=== PATIENT | female | born 1985 | race Two or more races ===

== ENCOUNTER 2017-08-31 03:43 | Emergency (ER) | payer BC, MEDICAID ==
[~2017-08-31] VITALS: Ht 162.6 cm; Wt 56.7 kg
[2017-08-31 04:24] LABS: Basophils # (auto) 0.1 uL; Basophils % (auto) 1.3 % (0.0-2.0); Eosinophils # (auto) 0 uL; Eosinophils % (auto) 0.2 % (0.0-7.0); Hematocrit 40.6 % (36.0-46.0); Hemoglobin 13.6 g/dL (12.2-16.2); Lymphocytes # (auto) 2.2 uL; Lymphocytes % (auto) 34.6 % (10.0-50.0); Mean Corpuscular Hemoglobin 29.8 pg (28.0-32.0); Mean Corpuscular Hgb Conc. 33.6 g/dL (32.0-36.0); Mean Corpuscular Volume 88.5 fL (80.0-100.0); Monocytes # (auto) 0.3 uL; Monocytes % (auto) 5.3 % (0.0-12.0); Neutrophils # (auto) 3.7 uL; Neutrophils % (auto) 58.6 % (37.0-80.0); Nucleated Red Blood Cells % 0.1 %; Platelet Count (auto) 360 10^3/uL (140-450); Red Blood Cells 4.58 10^6/uL (4.0-5.20); Red Cell Distribution Width 17.7 % (11.8-14.3); White Blood Cell 6.4 10^3/uL (4.4-10.8)
[2017-08-31 04:26] LABS: Urine Pregnacy Test Negative (Negative)
[2017-08-31 04:31] LABS: Amphetamine Screen, Urine POSITIVE (NEGATIVE); Barbiturate Scree,Urine NEGATIVE (NEGATIVE); Benzodiazephine Screen, Urine NEGATIVE (NEGATIVE); Cannabinoid Screen, Urine NEGATIVE (NEGATIVE); Cocaine Screen, Urine POSITIVE (NEGATIVE); Opiate Scree,Urine NEGATIVE (NEGATIVE); Phencyclidine Screen, Urine NEGATIVE (NEGATIVE)
[2017-08-31 04:32] LABS: Urine Amorphous Crystal FEW /hpf (None Seen); Urine Bacteria MANY /hpf (None Seen); Urine Blood TRACE /uL (Negative); Urine Hyaline Cast FEW /lpf (0 - 2); Urine Mucus FEW (None Seen); Urine Specific Gravity 1.022 (1.001-1.035); Urine WBC 40 /hpf (0 - 5)
[2017-08-31 04:36] LABS: Albumin 3.8 g/dL (3.4-5.0); BUN/Creatinine Ratio 12.5; Calcium 8.2 mg/dL (8.5-10.1); Potassium 3.4 mmol/L (3.5-5.1)
[2017-08-31 04:40] LABS: Bilirubin, Total 0.3 mg/dL (0.2-1.0); Total Protein 8.6 g/dL (6.4-8.2)
[2017-08-31 06:00] VITALS: BP 147/88
[2017-08-31] MEDS ORDERED: cefTRIAXone 1GM/10ml IVPUSH 10 ML IV ONE (06:00)
[2017-08-31] MEDS ORDERED: SODIUM CHLORIDE 0.9% 3,000 ML IV ONE (06:00)
== END 2017-08-31 06:13 | disposition left against medical advice (07) ==
LOC: ER 03:45
DX: F10.120 Alcohol abuse with intoxication, uncomplicated (principal); N39.0 Urinary tract infection, site not specified; F14.10 Cocaine abuse, uncomplicated; Z53.29 Procedure and treatment not carried out because of patient's decision for other reasons
CPT/HCPCS: 36415; 80053; 80307; 80320; 81001; 81025; 85025; 93005

== ENCOUNTER 2017-09-30 22:21 | Observation (INO) | payer BC, MEDICAID ==
[~2017-09-30] VITALS: Ht 162.6 cm; Wt 59.0 kg
[2017-09-30 23:01] LABS: Basophils # (auto) 0.1 uL; Eosinophils # (auto) 0.1 uL; Lymphocytes # (auto) 1.8 uL; Monocytes # (auto) 0.4 uL; Monocytes % (auto) 6.6 % (0.0-12.0); Neutrophils # (auto) 3.9 uL; Nucleated Red Blood Cells % 0.1 %; Red Cell Distribution Width 18.9 % (11.8-14.3)
[2017-09-30 23:03] LABS: Basophils % (auto) 1.3 % (0.0-2.0); Eosinophils % (auto) 0.8 % (0.0-7.0); Hematocrit 35.6 % (36.0-46.0); Hemoglobin 11.9 g/dL (12.2-16.2); Mean Corpuscular Hgb Conc. 33.4 g/dL (32.0-36.0); Mean Corpuscular Volume 89.7 fL (80.0-100.0); Neutrophils % (auto) 62.3 % (37.0-80.0); Red Blood Cells 3.97 10^6/uL (4.0-5.20); White Blood Cell 6.3 10^3/uL (4.4-10.8)
[2017-09-30 23:12] LABS: Urine Bacteria NONE SEEN /hpf (None Seen); Urine Blood Negative /uL (Negative); Urine Specific Gravity 1.024 (1.001-1.035); Urine WBC 2 /hpf (0 - 5)
[2017-09-30 23:17] LABS: Albumin 4.4 g/dL (3.4-5.0); BUN/Creatinine Ratio 15.1; Calcium 8.4 mg/dL (8.5-10.1); Potassium 3.2 mmol/L (3.5-5.1)
[2017-09-30 23:21] LABS: Bilirubin, Total 0.4 mg/dL (0.2-1.0); Total Protein 8.7 g/dL (6.4-8.2)
[2017-09-30 23:41] LABS: Platelet Count (auto) 474 10^3/uL (140-450)
[2017-10-01 01:29] LABS: Amphetamine Screen, Urine NEGATIVE (NEGATIVE); Barbiturate Scree,Urine NEGATIVE (NEGATIVE); Benzodiazephine Screen, Urine NEGATIVE (NEGATIVE); Cannabinoid Screen, Urine NEGATIVE (NEGATIVE); Cocaine Screen, Urine NEGATIVE (NEGATIVE); Opiate Scree,Urine NEGATIVE (NEGATIVE); Phencyclidine Screen, Urine NEGATIVE (NEGATIVE)
[2017-10-01 02:51] VITALS: BP 124/83
== END 2017-10-01 04:12 | disposition home or self-care (01) | DRG 690 ==
LOC: ER 22:21 → OVERFLOW 22:22 → ER 10-01 04:12
PROVIDERS: ADMIT Emergency Medicine; ATTEND Emergency Medicine
DX: N39.0 Urinary tract infection, site not specified (principal); Z87.442 Personal history of urinary calculi
CPT/HCPCS: 36415; 74176; 80053; 80307; 80320; 81001; 81025; 85025; 99285; G0378

== ENCOUNTER 2017-10-08 15:53 | Emergency (ER) | payer BC, MEDICAID ==
[~2017-10-08] VITALS: Ht 162.6 cm; Wt 59.0 kg
[2017-10-08] MEDS ORDERED: SODIUM CHLORIDE 0.9% 1,000 ML IV ONE ×2 (16:39)
[2017-10-08] MEDS ORDERED: chlordiazePOXIDE HCL 5 MG CAP PO ONE (16:45)
[2017-10-08] MEDS ORDERED: THIAMINE 100mg/ml INJ (200mg/2ml VIAL) IV ONE (16:45)
[2017-10-08 17:12] LABS: Alanine Aminotransferase 32 U/L (13-56); Albumin 4.2 g/dL (3.4-5.0); Anion Gap 12 (5-15); Aspartate Aminotransferase 36 U/L (15-37); BUN/Creatinine Ratio 18.8; Blood Urea Nitrogen 13 mg/dL (7-18); Calcium 8.9 mg/dL (8.5-10.1); Carbon Dioxide 25 mmol/L (21-32); Chloride 103 mmol/L (98-107); GFR African American 128 mL/min; GFR Non-African American 105 mL/min; Glucose 85 mg/dL (74-106); Potassium 3.8 mmol/L (3.5-5.1); Sodium 140 mmol/L (136-145)
[2017-10-08 17:15] LABS: Basophils # (auto) 0.1 uL; Eosinophils # (auto) 0 uL; Eosinophils % (auto) 0.1 % (0.0-7.0); Hematocrit 40.9 % (36.0-46.0); Hemoglobin 13.8 g/dL (12.2-16.2); Lymphocytes # (auto) 1.4 uL; Lymphocytes % (auto) 19.9 % (10.0-50.0); Mean Corpuscular Hgb Conc. 33.7 g/dL (32.0-36.0); Mean Corpuscular Volume 89.1 fL (80.0-100.0); Monocytes # (auto) 0.4 uL; Monocytes % (auto) 5.2 % (0.0-12.0); Neutrophils # (auto) 5.2 uL; Neutrophils % (auto) 73.8 % (37.0-80.0); Platelet Count (auto) 346 10^3/uL (140-450); Red Blood Cells 4.59 10^6/uL (4.0-5.20); Red Cell Distribution Width 19.7 % (11.8-14.3)
[2017-10-08 17:16] LABS: Alkaline Phosphatase 80 U/L (45-117); Bilirubin, Total 0.5 mg/dL (0.2-1.0); Total Protein 9.6 g/dL (6.4-8.2)
[2017-10-08 17:56] LABS: Urine Bacteria NONE SEEN /hpf (None Seen); Urine Blood Negative /uL (Negative); Urine Specific Gravity 1.023 (1.001-1.035); Urine WBC 2 /hpf (0 - 5)
[2017-10-08 18:16] LABS: Amphetamine Screen, Urine NEGATIVE (NEGATIVE); Barbiturate Scree,Urine NEGATIVE (NEGATIVE); Benzodiazephine Screen, Urine NEGATIVE (NEGATIVE); Cannabinoid Screen, Urine POSITIVE (NEGATIVE); Cocaine Screen, Urine POSITIVE (NEGATIVE); Opiate Scree,Urine NEGATIVE (NEGATIVE); Phencyclidine Screen, Urine NEGATIVE (NEGATIVE)
[2017-10-08 18:53] VITALS: BP 154/55
== END 2017-10-08 18:56 | disposition home or self-care (01) ==
LOC: ER 15:53
DX: E86.0 Dehydration (principal); F10.120 Alcohol abuse with intoxication, uncomplicated; I10 Essential (primary) hypertension; F15.10 Other stimulant abuse, uncomplicated; F14.10 Cocaine abuse, uncomplicated
CPT/HCPCS: 36415; 80053; 80307; 81001; 83880; 84484; 85025; 96361; 96374; 99285; J3411; 93005

== ENCOUNTER 2018-11-23 22:47 | Emergency (ER) | payer BC, MEDICAID ==
[~2018-11-23] VITALS: Ht 162.6 cm; Wt 61.2 kg
[2018-11-23 23:19] LABS: Basophils # (auto) 0.1 uL; Basophils % (auto) 0.5 % (0.0-2.0); Eosinophils # (auto) 0 uL; Hematocrit 39.7 % (36.0-46.0); Hemoglobin 13.1 g/dL (12.2-16.2); Lymphocytes # (auto) 0.8 uL; Lymphocytes % (auto) 3.6 % (10.0-50.0); Mean Corpuscular Hemoglobin 31.8 pg (28.0-32.0); Mean Corpuscular Hgb Conc. 33.1 g/dL (32.0-36.0); Mean Corpuscular Volume 96.2 fL (80.0-100.0); Monocytes # (auto) 0.4 uL; Monocytes % (auto) 1.9 % (0.0-12.0); Neutrophils # (auto) 20.4 uL; Platelet Count (auto) 312 10^3/uL (140-450); Red Blood Cells 4.13 10^6/uL (4.0-5.20); Red Cell Distribution Width 15.4 % (11.8-14.3); White Blood Cell 21.7 10^3/uL (4.4-10.8)
[2018-11-23 23:39] LABS: Alanine Aminotransferase 15 U/L (13-56); Albumin 3.9 g/dL (3.4-5.0); Amylase 25 U/L (25-115); Anion Gap 14 (5-15); Aspartate Aminotransferase 13 U/L (15-37); BUN/Creatinine Ratio 11.4; Blood Urea Nitrogen 8 mg/dL (7-18); Calcium 8.8 mg/dL (8.5-10.1); Carbon Dioxide 18 mmol/L (21-32); Chloride 103 mmol/L (98-107); GFR African American 125 mL/min; GFR Non-African American 103 mL/min; Glucose 87 mg/dL (74-106); Lipase 65 U/L (73-393); Potassium 3.6 mmol/L (3.5-5.1); Sodium 135 mmol/L (136-145)
[2018-11-23 23:44] LABS: Alkaline Phosphatase 70 U/L (45-117); Bilirubin, Total 0.6 mg/dL (0.2-1.0); Total Protein 8.7 g/dL (6.4-8.2)
[2018-11-24] MEDS ORDERED: ONDANSETRON HCL 4 MG/2 ML VIAL IV ONE (02:45)
[2018-11-24] MEDS ORDERED: SODIUM CHLORIDE 0.9% 2,000 ML IV ONE (02:45)
[2018-11-24] MEDS ORDERED: NALBUPHINE HCL 10 MG/1ml INJECTION IV ONE (02:45)
[2018-11-24 02:46] LABS: Urine Bacteria FEW /hpf (None Seen); Urine Blood TRACE /uL (Negative); Urine Mucus FEW (None Seen); Urine Specific Gravity 1.017 (1.001-1.035); Urine WBC 24 /hpf (0 - 5)
[2018-11-24] MEDS ORDERED: CEFTRIAXONE SODIUM 2 GM in D5W 5% 50 ML IV ONE (06:30)
[2018-11-24 06:32] VITALS: BP 109/64
[2018-11-24] MEDS ORDERED: cefTRIAXone 1GM/50ML D5W 100 ML IV ONE (06:45)
== END 2018-11-24 07:07 | disposition home or self-care (01) ==
LOC: ER 22:49
DX: N39.0 Urinary tract infection, site not specified (principal); I10 Essential (primary) hypertension; F17.210 Nicotine dependence, cigarettes, uncomplicated; F12.10 Cannabis abuse, uncomplicated; F14.10 Cocaine abuse, uncomplicated
CPT/HCPCS: 36415; 74176; 80053; 81001; 82150; 83690; 84484; 84702; 85025; 93005; 96365; 96375; 99284; J0696; J2300; J2405; J7060

== ENCOUNTER 2019-08-14 20:50 | Emergency (ER) | payer BC, MEDICAID ==
[~2019-08-14] VITALS: Ht 162.6 cm; Wt 59.0 kg
[2019-08-14 21:12] VITALS: BP 156/105
== END 2019-08-15 00:52 | disposition left against medical advice (07) ==
LOC: ER 20:50
DX: R10.9 Unspecified abdominal pain (principal); M54.9 Dorsalgia, unspecified; Z53.21 Procedure and treatment not carried out due to patient leaving prior to being seen by health care provider

== ENCOUNTER 2021-04-28 16:38 | Inpatient (IN) | payer BC, MEDICAID ==
[~2021-04-28] VITALS: Ht 162.6 cm; Wt 59.0 kg
[2021-04-28 17:21] LABS: Basophils # (auto) 0.1 10 ^3/uL (0-0.2); Eosinophils # (auto) 0 10 ^3/uL (0-0.8); Lymphocytes # (auto) 1.2 10 ^3/uL (0.4-5.4); Monocytes # (auto) 0.4 10 ^3/uL (0-1.3); Neutrophils # (auto) 3.7 10 ^3/uL (1.6-8.6); Nucleated Red Blood Cells % 0.2 %; White Blood Cell 5.4 10^3/uL (4.4-10.8)
[2021-04-28 17:23] LABS: Basophils % (auto) 1.8 % (0.0-2.0); Eosinophils % (auto) 0.7 % (0.0-7.0); Hematocrit 29.2 % (36.0-46.0); Hemoglobin 9.8 g/dL (12.2-16.2); Lymphocytes % (auto) 22.4 % (10.0-50.0); Mean Corpuscular Hemoglobin 26.6 pg (28.0-32.0); Mean Corpuscular Hgb Conc. 33.5 g/dL (32.0-36.0); Mean Corpuscular Volume 79.4 fL (80.0-100.0); Monocytes % (auto) 7.1 % (0.0-12.0); Red Blood Cells 3.68 10^6/uL (4.0-5.20); Red Cell Distribution Width 16.2 % (11.8-14.3)
[2021-04-28 17:33] LABS: INR 0.92 (0.9-1.15); Partial Thromboplastin Time 26.6 sec (23.6-33.0)
[2021-04-28 17:43] LABS: Albumin 2.4 g/dL (3.4-5.0); Potassium 3.3 mmol/L (3.5-5.1)
[2021-04-28 17:48] LABS: Alcohol, Urine < 3.0 mg/dL (0-10); Amphetamine Screen, Urine POSITIVE (NEGATIVE); Barbiturate Scree,Urine NEGATIVE (NEGATIVE); Benzodiazephine Screen, Urine NEGATIVE (NEGATIVE); Cannabinoid Screen, Urine NEGATIVE (NEGATIVE); Cocaine Screen, Urine NEGATIVE (NEGATIVE); Opiate Scree,Urine NEGATIVE (NEGATIVE); Phencyclidine Screen, Urine NEGATIVE (NEGATIVE)
[2021-04-28 17:59] LABS: Protein, Urine 32.2 mg/dL (0.0-11.9)
[2021-04-28] MEDS ORDERED: LACTATED RINGER'S 1,000 ML IV SCH (18:15)
[2021-04-28 18:20] LABS: Bilirubin, Total 0.5 mg/dL (0.2-1.0); Uric Acid 6.4 mg/dL (2.6-6.0)
[2021-04-28 18:24] LABS: Urine Bacteria FEW /hpf (None Seen); Urine Blood Negative /uL (Negative); Urine Specific Gravity 1.012 (1.001-1.035); Urine WBC 53 /hpf (0 - 5)
[2021-04-28 18:26] LABS: Total Protein 7.7 g/dL (6.4-8.2)
[2021-04-28 18:28] LABS: BUN/Creatinine Ratio 11.7
[2021-04-28] MEDS ORDERED: MAGNESIUM SULFATE 40MG/ML 1,000 ML IV SCH (19:30)
[2021-04-28] MEDS ORDERED: MAGNESIUM SULFATE 100 ML IV ONE (19:30)
[2021-04-28] MEDS ORDERED: LORazepam 2MG/ML-1ML VIAL IV ONE (19:30)
[2021-04-28] MEDS ORDERED: hydrALAZINE HCL 20 MG/ML VL IV PRN (19:45)
[2021-04-28] MEDS ORDERED: ALUM & MAG HYDROX-SIMETH LIQ(MAALOX) 30 ML PO ONE (19:45)
[2021-04-30 07:07] LABS: Rubella Antibodies, IgG 7.63 index (Immune >0.99)
== END 2021-04-28 20:38 | disposition home or self-care (01) | DRG 833 ==
LOC: LDRP 16:38 → OBSVTOIN 19:46
PROVIDERS: ADMIT Obstetrics & Gynecology Obstetrics; ATTEND Obstetrics & Gynecology Obstetrics
DX: O14.93 Unspecified pre-eclampsia, third trimester (principal); Z3A.34 34 weeks gestation of pregnancy; Z20.822 Contact with and (suspected) exposure to COVID-19
CPT/HCPCS: 36415; 59025; 76805; 80053; 80307; 81001; 81002; 82570; 83735; 84156; 84550; 85025; 85610; 85730; 86592; 86703; 86762; 86850; 86900; 86901; 87340; 87426; 94760; 96360; 96361; 96365; G0378

== ENCOUNTER 2021-08-12 22:02 | Emergency (ER) | payer BC, MEDICAID ==
[~2021-08-12] VITALS: Ht 160 cm; Wt 59.0 kg
[2021-08-13 01:37] LABS: Hemoglobin 11.3 g/dL (12.2-16.2)
[2021-08-13 01:40] LABS: Basophils # (auto) 0.1 10 ^3/uL (0-0.2); Basophils % (auto) 1.1 % (0.0-2.0); Eosinophils # (auto) 0 10 ^3/uL (0-0.8); Eosinophils % (auto) 0.5 % (0.0-7.0); Hematocrit 34.9 % (36.0-46.0); Lymphocytes # (auto) 2.2 10 ^3/uL (0.4-5.4); Lymphocytes % (auto) 32.7 % (10.0-50.0); Mean Corpuscular Hemoglobin 27.3 pg (28.0-32.0); Mean Corpuscular Hgb Conc. 32.4 g/dL (32.0-36.0); Mean Corpuscular Volume 84.4 fL (80.0-100.0); Monocytes # (auto) 0.7 10 ^3/uL (0-1.3); Monocytes % (auto) 10.1 % (0.0-12.0); Neutrophils # (auto) 3.7 10 ^3/uL (1.6-8.6); Neutrophils % (auto) 55.6 % (37.0-80.0); Nucleated Red Blood Cells % 0.1 %; Red Blood Cells 4.14 10^6/uL (4.0-5.20); White Blood Cell 6.7 10^3/uL (4.4-10.8)
[2021-08-13 01:49] LABS: Red Cell Distribution Width 20.6 % (11.8-14.3)
[2021-08-13 01:56] LABS: Alanine Aminotransferase 42 U/L (13-56); Albumin 4.4 g/dL (3.4-5.0); Anion Gap 10 (5-15); Aspartate Aminotransferase 59 U/L (15-37); BUN/Creatinine Ratio 15.4; Blood Alcohol < 3.0 mg/dL (0-5); Blood Urea Nitrogen 12 mg/dL (7-18); Calcium 10.4 mg/dL (8.5-10.1); Carbon Dioxide 27 mmol/L (21-32); Chloride 105 mmol/L (98-107); GFR African American 108 mL/min; GFR Non-African American 89 mL/min; Glucose 109 mg/dL (74-106); Potassium 3.5 mmol/L (3.5-5.1); Salicylate < 1.7 mg/dL (2.8-20.0); Sodium 142 mmol/L (136-145)
[2021-08-13 01:59] LABS: Alkaline Phosphatase 71 U/L (45-117); Total Protein 8.9 g/dL (6.4-8.2)
[2021-08-13 02:01] LABS: Acetaminophen < 2.0 ug/mL (10-30)
[2021-08-13 05:40] LABS: Amphetamine Screen, Urine POSITIVE (NEGATIVE); Barbiturate Scree,Urine NEGATIVE (NEGATIVE); Benzodiazephine Screen, Urine NEGATIVE (NEGATIVE); Cocaine Screen, Urine NEGATIVE (NEGATIVE); Phencyclidine Screen, Urine NEGATIVE (NEGATIVE)
[2021-08-13 05:47] LABS: Cannabinoid Screen, Urine NEGATIVE (NEGATIVE); Opiate Scree,Urine NEGATIVE (NEGATIVE)
[2021-08-13 09:57] VITALS: BP 140/95
== END 2021-08-13 12:30 | disposition left against medical advice (07) ==
LOC: ER 22:02
DX: F41.0 Panic disorder [episodic paroxysmal anxiety] (principal); I10 Essential (primary) hypertension; F17.210 Nicotine dependence, cigarettes, uncomplicated; F15.10 Other stimulant abuse, uncomplicated; F14.10 Cocaine abuse, uncomplicated; Z53.29 Procedure and treatment not carried out because of patient's decision for other reasons
CPT/HCPCS: 36415; 80053; 80307; 80320; 80329; 84702; 85025

== ENCOUNTER 2022-08-19 10:50 | Emergency (ER) | payer BC, MEDICAID ==
[~2022-08-19] VITALS: Ht 162.6 cm; Wt 77.0 kg
[2022-08-19] MEDS ORDERED: PENICILLIN G BENZ 1200000 UNITS/2 ML SYRG IM ONE (11:30)
[2022-08-19 14:04] VITALS: BP 109/69
== END 2022-08-19 14:06 | disposition home or self-care (01) ==
LOC: ER 10:50
DX: O98.113 Syphilis complicating pregnancy, third trimester (principal); F17.210 Nicotine dependence, cigarettes, uncomplicated; F10.90 Alcohol use, unspecified, uncomplicated; F15.90 Other stimulant use, unspecified, uncomplicated; Z3A.28 28 weeks gestation of pregnancy; Z98.890 Other specified postprocedural states

== ENCOUNTER 2022-09-30 08:35 | Observation (INO) | payer BC, MEDICAID ==
[~2022-09-30] VITALS: Ht 162.6 cm; Wt 78.9 kg
[2022-09-30 09:31] LABS: Basophils # (auto) 0.1 10 ^3/uL (0-0.2); Basophils % (auto) 0.9 % (0.0-2.0); Eosinophils # (auto) 0.1 10 ^3/uL (0-0.8); Eosinophils % (auto) 1.7 % (0.0-7.0); Hematocrit 31.9 % (36.0-46.0); Hemoglobin 10.7 g/dL (12.2-16.2); Lymphocytes # (auto) 1.5 10 ^3/uL (0.4-5.4); Lymphocytes % (auto) 24.1 % (10.0-50.0); Mean Corpuscular Hemoglobin 30.1 pg (28.0-32.0); Mean Corpuscular Hgb Conc. 33.5 g/dL (32.0-36.0); Mean Corpuscular Volume 89.9 fL (80.0-100.0); Monocytes # (auto) 0.4 10 ^3/uL (0-1.3); Neutrophils # (auto) 4.1 10 ^3/uL (1.6-8.6); Neutrophils % (auto) 66.3 % (37.0-80.0); Nucleated Red Blood Cells % 0.2 %; Red Blood Cells 3.55 10^6/uL (4.0-5.20); Red Cell Distribution Width 17.8 % (11.8-14.3); White Blood Cell 6.2 10^3/uL (4.4-10.8)
[2022-09-30 09:38] LABS: Urine Bacteria FEW /hpf (None Seen); Urine Blood Negative /uL (Negative); Urine Specific Gravity 1.006 (1.001-1.035); Urine WBC 31 /hpf (0 - 5)
[2022-09-30 09:46] LABS: Albumin 2.6 g/dL (3.4-5.0); Calcium 8.2 mg/dL (8.5-10.1)
[2022-09-30 09:50] LABS: BUN/Creatinine Ratio 9.3 (10.0-20.0); Bilirubin, Total 0.2 mg/dL (0.2-1.0); Total Protein 6.5 g/dL (6.4-8.2); Uric Acid 5.9 mg/dL (2.6-6.0)
[2022-09-30 09:53] LABS: Protein, Urine 12.3 mg/dL (0.0-11.9)
[2022-09-30 09:55] LABS: INR 0.94 (0.9-1.15); Partial Thromboplastin Time 30.3 SEC (24.5-34.5); Potassium 2.8 mmol/L (3.5-5.1)
[2022-09-30] MEDS ORDERED: POTASSIUM CHL 20 Meq TABLET PO ONE (10:15)
== END 2022-09-30 11:00 | disposition home or self-care (01) ==
LOC: LDRP 08:35 → UNDOADMOB 08:35 → LDRP 08:46 → UNDODISOB 11:00
PROVIDERS: ADMIT Obstetrics & Gynecology; ATTEND Obstetrics & Gynecology
DX: O13.3 Gestational [pregnancy-induced] hypertension without significant proteinuria, third trimester (principal); O60.03 Preterm labor without delivery, third trimester; Z3A.34 34 weeks gestation of pregnancy
CPT/HCPCS: 36415; 59025; 80053; 81001; 81002; 82570; 84112; 84156; 84550; 85025; 85610; 85730; 86592; 94760; G0378

== ENCOUNTER 2022-10-02 16:30 | Observation (INO) | payer BC, MEDICAID ==
[~2022-10-02] VITALS: Ht 162.6 cm; Wt 78.9 kg
[2022-10-02] MEDS ORDERED: POTASSIUM CHL 20 Meq TABLET PO ONE (18:00)
[2022-10-02 18:29] LABS: 24 Hr. Total Protein, Urine 199.5 mg/24 Hr (<149.1)
[2022-10-02 20:22] LABS: Creatinine Clearance, Urine 48.4 mL/min (75-115)
== END 2022-10-02 19:18 | disposition home or self-care (01) ==
LOC: LDRP 16:30
PROVIDERS: ADMIT Obstetrics & Gynecology; ATTEND Obstetrics & Gynecology
DX: O14.93 Unspecified pre-eclampsia, third trimester (principal); O13.3 Gestational [pregnancy-induced] hypertension without significant proteinuria, third trimester; Z3A.34 34 weeks gestation of pregnancy
CPT/HCPCS: 59025; 81002; 82575; 84156; 94760; G0378

== ENCOUNTER 2022-10-09 20:08 | Observation (INO) | payer BC, MEDICAID ==
[~2022-10-09] VITALS: Ht 162.6 cm; Wt 78.9 kg
== END 2022-10-09 22:20 | disposition home or self-care (01) ==
LOC: LDRP 20:08
PROVIDERS: ADMIT Obstetrics & Gynecology; ATTEND Obstetrics & Gynecology
DX: O13.3 Gestational [pregnancy-induced] hypertension without significant proteinuria, third trimester (principal); O24.419 Gestational diabetes mellitus in pregnancy, unspecified control; Z3A.36 36 weeks gestation of pregnancy
CPT/HCPCS: 59025; 76818; 81002; G0378

== ENCOUNTER 2022-10-13 09:57 | Inpatient (IN) | payer BC, MEDICAID ==
[~2022-10-13] VITALS: Ht 162.6 cm; Wt 54.4 kg
[2022-10-13] MEDS ORDERED: hydrALAZINE HCL 20 MG/ML VL IV ONE (17:30)
[2022-10-13 18:20] LABS: Basophils # (auto) 0 10 ^3/uL (0-0.2); Basophils % (auto) 0.5 % (0.0-2.0); Eosinophils # (auto) 0.1 10 ^3/uL (0-0.8); Eosinophils % (auto) 1.1 % (0.0-7.0); Hematocrit 35.2 % (36.0-46.0); Hemoglobin 11.7 g/dL (12.2-16.2); Lymphocytes % (auto) 24.6 % (10.0-50.0); Mean Corpuscular Hemoglobin 29.8 pg (28.0-32.0); Mean Corpuscular Hgb Conc. 33.3 g/dL (32.0-36.0); Mean Corpuscular Volume 89.5 fL (80.0-100.0); Monocytes # (auto) 0.4 10 ^3/uL (0-1.3); Monocytes % (auto) 5.1 % (0.0-12.0); Neutrophils # (auto) 5.5 10 ^3/uL (1.6-8.6); Neutrophils % (auto) 68.7 % (37.0-80.0); Nucleated Red Blood Cells % 0.1 %; Red Blood Cells 3.93 10^6/uL (4.0-5.20); Red Cell Distribution Width 17.1 % (11.8-14.3)
[2022-10-13 18:37] LABS: INR 0.94 (0.9-1.15); Partial Thromboplastin Time 29.6 SEC (24.5-34.5); Prothrombin Time 9.9 sec (9.3-11.8)
[2022-10-13 18:38] LABS: Albumin 2.8 g/dL (3.4-5.0); Calcium 8.4 mg/dL (8.5-10.1)
[2022-10-13 18:42] LABS: BUN/Creatinine Ratio 11.6 (10.0-20.0); Bilirubin, Total 0.2 mg/dL (0.2-1.0); Total Protein 7.3 g/dL (6.4-8.2); Uric Acid 5.9 mg/dL (2.6-6.0)
[2022-10-13 18:45] LABS: Alcohol, Urine < 3.0 mg/dL (0-10); Amphetamine Screen, Urine NEGATIVE (NEGATIVE); Barbiturate Scree,Urine NEGATIVE (NEGATIVE); Benzodiazephine Screen, Urine NEGATIVE (NEGATIVE); Cannabinoid Screen, Urine NEGATIVE (NEGATIVE); Cocaine Screen, Urine NEGATIVE (NEGATIVE); Opiate Scree,Urine NEGATIVE (NEGATIVE); Phencyclidine Screen, Urine NEGATIVE (NEGATIVE)
[2022-10-13 18:49] LABS: Urine Bacteria NONE SEEN /hpf (None Seen); Urine Blood TRACE /uL (Negative); Urine Clarity HAZY (Clear); Urine Color Yellow (Yellow); Urine Protein, UAD TRACE (Negative); Urine Specific Gravity 1.021 (1.001-1.035); Urine Urobilinogen Normal (Negative); Urine WBC 5 /hpf (0 - 5); Urine pH 6.5 (5.0-8.0)
[2022-10-13 18:58] LABS: Potassium 2.9 mmol/L (3.5-5.1)
[2022-10-13 19:02] LABS: Protein, Urine 50.4 mg/dL (0.0-11.9); Urine Protein/Creatinine Ratio 0.33
[2022-10-13] MEDS ORDERED: BETAMETHASONE ACET (30mg/5ml) 5ml Vial 6mg/ml IM ONE (19:15)
[2022-10-13] MEDS ORDERED: AZITHROMYCIN 250 MG TAB PO ONE (19:15)
[2022-10-13] MEDS ORDERED: POTASSIUM CHL 20 Meq TABLET PO ONE (19:45)
[2022-10-13] MEDS ORDERED: LACTATED RINGER'S 1,000 ML IV SCH (19:45)
[2022-10-13] MEDS ORDERED: LABETALOL HCL 200 MG TAB PO ONE (19:45)
[2022-10-15 20:06] LABS: Treponema pallidum Ab (FTA-Ab) Reactive (Non Reactive)
== END 2022-10-13 21:20 | disposition short-term general hospital (02) | DRG 833 ==
LOC: LDRP 15:42 → OBSVTOIN 19:35
PROVIDERS: ADMIT Obstetrics & Gynecology; ATTEND Obstetrics & Gynecology
DX: O13.3 Gestational [pregnancy-induced] hypertension without significant proteinuria, third trimester (principal); Z3A.36 36 weeks gestation of pregnancy; Z98.891 History of uterine scar from previous surgery
CPT/HCPCS: 36415; 59025; 76818; 80053; 80307; 81001; 81002; 82570; 84156; 84550; 85025; 85610; 85730; 86592; 86850; 86900; 86901; 94760; 96360; 96361; 96372; 96374; G0378